=== PATIENT | female | born 1990 | race Caucasian/White ===

== ENCOUNTER 2019-02-19 12:18 | Emergency (ER) | payer OTHER ==
[~2019-02-19] VITALS: Ht 177.8 cm; Wt 72.7 kg
[2019-02-19 12:19] VITALS: BP 117/64
--- NOTE | 2019-02-19 13:07 | REP ---
Left ankle series: Four views. History: Pain and basketball injury. Findings: Four views of the left ankle demonstrate an intact ankle mortise. No fracture or subluxation is seen. Soft tissues are unremarkable. Impression: Negative left ankle radiographs. Electronically Signed by Abdoulaye Figueredo MD 02/19/2019 12:59 P
[2019-02-19] MEDS ORDERED: KETO10TAB PO (15:59)
[2019-02-19] MEDS ORDERED: KETOROLAC 60 MG/2 ML VIAL (J1885) IM ONE (16:00)
== END 2019-02-19 17:20 | disposition home or self-care (01) ==
LOC: M ED 12:18
DX: S86.011A Strain of right Achilles tendon, initial encounter (principal); X58.XXXA Exposure to other specified factors, initial encounter; Y92.138 Other place on military base as the place of occurrence of the external cause; Y93.02 Activity, running
CPT/HCPCS: 73610; 96372; 99284; J1885

== ENCOUNTER 2019-02-23 11:34 | Day surgery (SDC) | payer OTHER ==
[~2019-02-23] VITALS: Ht 177.8 cm; Wt 74.3 kg
[~2019-02-23 11:34] MED LIST: KETO10TAB PO; LIDOCAINE 1% MDV 20ML VIAL SQ PRN; LR 1,000 ML IV ONE
[2019-02-23] MEDS ORDERED: ceFAZolin SOD 2 GM in IV 1 EA IV ONE (12:00)
[2019-02-23] MEDS ORDERED: ceFAZolin 2 GM/D5W 50 ML IV BAG (J0690 PER 500MG) As Ordered ONE (12:03)
[2019-02-23] MEDS ORDERED: fentaNYL 100 MCG/2 ML INJECTION (J3010) As Ordered ONE (12:47)
[2019-02-23] MEDS ORDERED: PROPOFOL 200 MG/20 ML VIAL As Ordered ONE ×2 (12:47→13:52)
[2019-02-23] MEDS ORDERED: ONDANSETRON 4MG/2ML VIAL (J2405) As Ordered ONE (12:47)
[2019-02-23] MEDS ORDERED: dexameTHASONE 4 MG/ML 1ML VIAL (J1100) As Ordered ONE (12:47)
[2019-02-23] MEDS ORDERED: MIDAZOLAM INJ 2 MG/2 ML VIAL (J2250) As Ordered ONE (12:47)
[2019-02-23] MEDS ORDERED: LIDOCAINE 2% INJ 100 MG/5 ML SDV (FOR ANES.) As Ordered ONE (12:47)
[2019-02-23] MEDS ORDERED: METOCLOPRAMIDE INJ 10MG/2ML VIAL (J2765) As Ordered ONE (12:47)
[2019-02-23] MEDS ORDERED: ACETAMINOPHEN 1000MG 100ML IV BTL (OFIRMEV) (J0131 PER 10MG) As Ordered ONE (12:48)
[2019-02-23] MEDS ORDERED: ePHEDrine SULFATE 25 MG/5 ML(5MG/ML) SYRINGE As Ordered ONE (13:10)
[2019-02-23] MEDS ORDERED: BUPIVACAINE HCL 0.5% 30 ML VIAL As Ordered ONE (14:01)
[2019-02-23] MEDS ORDERED: fentaNYL 100 MCG/2 ML INJECTION (J3010) IV PRN (14:45)
[2019-02-23] MEDS ORDERED: ONDANSETRON 4MG/2ML VIAL (J2405) IV PRN (14:45)
[2019-02-23] MEDS ORDERED: oxyCODONE 5MG TAB PO PRN ×2 (14:45)
[2019-02-23] MEDS ORDERED: LR 1,000 ML IV SCH ×2 (14:45)
[2019-02-23] MEDS ORDERED: GLYCOPYRROLATE INJ 0.2 MG/ML 2 ML VIAL As Ordered ONE (14:51)
[2019-02-23] MEDS ORDERED: ACETAMINOPHEN 500 MG TAB PO PRN (15:00)
[2019-02-23 17:22] VITALS: BP 102/56
[2019-02-24] MEDS ORDERED: RIVAROXABAN 10 MG TAB (XARELTO) PO SCH (18:00)
--- NOTE | 2019-02-24 23:19 | RO ---
DATE OF PROCEDURE: 02/23/2019 PREPROCEDURE DIAGNOSIS: Left Achilles rupture. POSTPROCEDURE DIAGNOSIS: Left Achilles rupture. PROCEDURE: Left Achilles repair. SURGEON: Mary Perry MD [employer]OL BABYSITTER: JOSELUIS Pitts ANESTHESIA: ESTIMATED BLOOD LOSS: 25 mL. COMPLICATIONS: None. CONDITION: Stable to recovery. INDICATIONS: Tamara Laura is a 28-year-old female, status post ruptured Achilles. She was offered both surgical and nonoperative management. Patient elected for surgery. Risks and benefits of surgery were discussed with the patient in detail and include but are not limited to infection, damage to nerves and blood vessels, continued pain and stiffness, need for additional procedures. Informed consent was obtained in the office. The patient was met in the preoperative holding area where her left lower extremity was marked as the correct operative site. Patient was taken to the operating room and underwent a spinal anesthetic. She was placed in the prone position. Bony prominences were well padded. A well-padded tourniquet was placed on the left upper thigh. Left upper extremity was prepped and draped in the normal sterile fashion. She received antibiotics within 60 minutes prior to incision. Esmarch was used to exsanguinate the leg and tourniquet was inflated to 250 mmHg. An incision was made midline over the Achilles. Crossing vessels were coagulated. The peritenon was incised. There was found to be a complete rupture of the Achilles tendon. The area was irrigated. Using #2 FiberWire, a Krackow stitch was performed on each side of the tendon rupture, proximally and distally. Next, using a Andrzej needle, a Creston Weave was performed through both the distal and proximal ends of the suture as well. The Krackow sutures were first tied down with good tension. This was then reinforced with Layla sutures being tied down. There was a good repair. Copious irrigation was performed. The peritenon was then closed using #2-0 Vicryl. Subcutaneous tissues were closed using #3-0 Vicryl and the skin was closed using #3-0 nylon in a horizontal mattress. A sterile dressing was applied, followed by a well-padded splint. The patient was then transferred back to the stretcher in the supine position, and taken to the recovery room in stable condition. PLAN: The patient will be non-weightbearing in the left lower extremity for 6 weeks. She will be on Xarelto for deep vein thrombosis (DVT) prophylaxis. I will see her back in the office in a week for a wound check.
== END 2019-02-23 17:50 | disposition home or self-care (01) ==
LOC: M SDC 11:34
PROVIDERS: ATTEND Orthopaedic Surgery
DX: S86.012A Strain of left Achilles tendon, initial encounter (principal); X58.XXXA Exposure to other specified factors, initial encounter; Y93.9 Activity, unspecified; Y92.9 Unspecified place or not applicable; Y99.9 Unspecified external cause status; F17.220 Nicotine dependence, chewing tobacco, uncomplicated
CPT/HCPCS: 27650; 81025; J0131; J0690; J1100; J2250; J2405; J2765; J3010